=== PATIENT | male | born 1970 | race Hispanic/Latino ===

== ENCOUNTER 2018-03-06 13:36 | Emergency (ER) | payer BC, OTHER ==
[2018-03-06] MEDS ORDERED: DiphenhydrAMINE HCL 50 MG/ML VIAL ONE (14:18)
[2018-03-06 16:04] LABS: BASOPHILS % (AUTO) 0.2 % (0.0-5.0); EOSINOPHILS % (AUTO) 0.2 % (0.0-8.0); HEMATOCRIT 45.1 % (42-54); LYMPHOCYTES % (AUTO) 15.6 % (21.0-51.0); MEAN CORPUSCULAR HEMOGLOBIN 30.8 pg (27.0-33.0); MEAN CORPUSCULAR HGB CONC 34.3 g/dL (32.0-36.0); MONOCYTES % (AUTO) 4.8 % (3.0-13.0); NEUTROPHILS % (AUTO) 79.2 % (40.0-77.0); NUCLEATED RED BLOOD CELLS 0.1 % (0.0-0.19); PLATELET COUNT (AUTO) 225 K/uL (130-400); RED BLOOD CELL COUNT(AUTO) 5.01 MIL/uL (4.50-6.20); RED CELL DISTRIBUTION WIDTH 13.3 % (11.0-15.5); WHITE BLOOD COUNT (AUTO) 9.7 K/uL (4.8-10.8)
[2018-03-06 16:22] LABS: CREATINE KINASE, TOTAL 262 U/L (21-232); LIPASE 179 U/L (114-286)
[2018-03-06 16:34] LABS: POTASSIUM 4.2 mmol/L (3.5-5.1)
[2018-03-06 16:39] LABS: ALBUMIN 4.3 g/dL (3.5-5.0); BILIRUBIN,TOTAL 0.4 mg/dL (0.2-1.0); TOTAL PROTEIN, SERUM 8.8 g/dL (6.0-8.3)
== END 2018-03-06 17:27 | disposition home or self-care (01) ==
LOC: EDH 13:36
DX: K21.9 Gastro-esophageal reflux disease without esophagitis (principal); F41.1 Generalized anxiety disorder; R03.0 Elevated blood-pressure reading, without diagnosis of hypertension
CPT/HCPCS: 36415; 71046; 80053; 82550; 83690; 84484; 85025; 93005; 96372; 99285; J1200

== ENCOUNTER 2019-03-31 01:49 | Emergency (ER) | payer BC ==
[2019-03-31] MEDS ORDERED: ASPIRIN 325 MG TABLET ONE (02:46)
[2019-03-31] MEDS ORDERED: MAG HYDROX/AL HYDROX/SIMETH ES 30 ML SUSP UDCUP ONE (03:14)
[2019-03-31] MEDS ORDERED: LIDOCAINE HCL 2% VISCOUS 15 ML UDCUP ONE (03:14)
[2019-03-31 03:21] LABS: BASOPHILS % (AUTO) 0.2 % (0.0-5.0); EOSINOPHILS % (AUTO) 1.6 % (0.0-8.0); LYMPHOCYTES % (AUTO) 38.6 % (21.0-51.0); MEAN CORPUSCULAR HEMOGLOBIN 29.8 pg (27.0-33.0); MEAN CORPUSCULAR HGB CONC 33.9 g/dL (32.0-36.0); MONOCYTES % (AUTO) 5.7 % (3.0-13.0); NEUTROPHILS % (AUTO) 53.3 % (40.0-77.0); PLATELET COUNT (AUTO) 208 K/uL (130-400); RED BLOOD CELL COUNT(AUTO) 4.66 MIL/uL (4.50-6.20); RED CELL DISTRIBUTION WIDTH 12.6 % (11.0-15.5); WHITE BLOOD COUNT (AUTO) 8.1 K/uL (4.8-10.8)
[2019-03-31 03:23] LABS: POTASSIUM 3.6 mmol/L (3.5-5.1)
[2019-03-31 03:27] LABS: ALBUMIN 3.8 g/dL (3.5-5.0); BILIRUBIN,TOTAL 0.2 mg/dL (0.2-1.0)
[2019-03-31 03:36] LABS: B-TYPE NATRIURETIC PEPTIDE < 5 pg/mL (0-100)
[2019-03-31 03:38] LABS: INR 0.96 (0.85-1.15); PARTIAL THROMBOPLASTIN TIME 25.2 SEC (26.3-35.5); PROTHROMBIN TIME 10.1 SEC (9.6-11.6)
== END 2019-03-31 06:36 | disposition home or self-care (01) ==
LOC: EDH 01:49
DX: R07.89 Other chest pain (principal); I10 Essential (primary) hypertension
CPT/HCPCS: 36415; 71045; 80053; 82550; 83690; 83880; 84484; 85025; 85610; 85730; 93005